=== PATIENT | female | born 1955 | race Caucasian/White ===

== ENCOUNTER 2019-08-12 20:42 | Emergency (ER) | payer SELFPAY ==
[~2019-08-12] VITALS: Ht 152.4 cm; Wt 68.0 kg
[2019-08-12 20:56] VITALS: BP_SYST 161
--- NOTE | 2019-08-12 21:05 | NUR ---
Patient to [facility] for evaluation. Side rails up.
--- NOTE | 2019-08-12 21:15 | NUR ---
Pt BIB [employer] to ED seeking medical clearance d/t HTN. No other complaints and or injuries noted VSS no s/s of acute distress Resting on gurney rails up
--- NOTE | 2019-08-12 21:23 | NUR ---
Dr. Garcia bedside for pt eval
[2019-08-12] MEDS ORDERED: METOPROLOL TARTRATE 25 MG TABLET PO ONE (21:30)
[2019-08-12] MEDS ORDERED: LISINOPRIL 10 MG TABLET (PRINIVIL) PO ONE (21:30)
--- NOTE | 2019-08-12 21:35 | NUR ---
Dr. Garcia bedside for pt update
[2019-08-12 21:45] VITALS: BP_SYST 142
--- NOTE | 2019-08-12 21:45 | NUR ---
Patient given written and verbal discharge instructions and verbalizes understanding. ER MD discussed with patient the results and treatment provided. Patient in stable condition. ID arm band removed. Patient educated on pain management and to follow up with PMD. Pain Scale 0/10 Opportunity for questions provided and answered.
== END 2019-08-12 21:45 ==
LOC: SED 20:42
DX: I10 Essential (primary) hypertension (principal)
CPT/HCPCS: 99283